=== PATIENT | male | born 1950 | race Caucasian/White ===

== ENCOUNTER → 2017-12-18 | Outpatient (CLI) | payer MEDICARE, OTHER ==
[2017-12-18 11:44] LABS: Blood Urea Nitrogen 30 mg/dL (9-20)
--- NOTE | 2017-12-18 14:38 | CT ---
EXAMINATION TYPE: CT pelvis w con DATE OF EXAM: 12/18/2017 COMPARISON: NONE HISTORY: Patient has prostate CA. CT DLP: 915.5 mGycm Automated exposure control for dose reduction was used. CONTRAST: Standard CT scanning of the pelvis per department protocol was performed with IV Contrast, patient in jected with 100 mL of Isovue 300. FINDINGS: The right seminal vesicle is slightly asymmetrically enlarged in comparison to the left. No focal are a of enhancement is seen within the prostate gland to correspond to the patient's known prostate carc inoma. Single central zone calcification is noted. No surrounding adenopathy is identified within the pelvis. Internal and external iliac chains are unremarkable. The visualized portion of the liver enhances homogeneously. Gallbladder is unremarkable with no gavin lithiasis. Abdominal aorta is of normal course and caliber with moderate calcific atheromatous change s. Sigmoid colon and descending colon containing numerous diverticula without pericolic fat strain. A ppendix is air-filled and within normal limits. Urinary bladder is slightly lobulated in contour with a small focal anterior right lateral diverticulum. Bilateral fat filled inguinal hernias are seen, l eft greater than right. No superficial inguinal adenopathy. Small bowel is nonenlarged. Visualized pa ncreatic head is grossly unremarkable. The kidneys contain multiple hypoechoic cortical lesions the l argest of which on the left measures up to 1.5 cm and is compatible with a simple cyst. The smaller o f these lesions are too small to accurately characterize. Punctate 3 mm cortical focus is seen within the right proximal femur on image 67. Extensive degenerat karson changes are present at L4-L5 with osseous sclerosis of the L4 and L5 vertebral bodies likely attr ibutable to be extensive degenerative change. IMPRESSION: 1. NO ADENOPATHY WITHIN THE PELVIS OR VISUALIZED ABDOMEN AND THIS PATIENT WITH KNOWN PROSTATE CARCINO MA AND A SLIGHTLY HETEROGENOUS PROSTATE GLAND. THE RIGHT SEMINAL VESICLE IS MINIMALLY LARGER AND SLIG HTLY ASYMMETRIC TO THE LEFT, WHICH COULD BE A NORMAL VARIANT. 2. SOLITARY PUNCTATE 3 MM FOCUS WITHIN THE RIGHT PROXIMAL FEMUR MOST LIKELY RELATES TO A BENIGN BONE ISLAND RATHER THAN METASTASIS. 3. EXTENSIVE DEGENERATIVE CHANGES AT THE L4-L5 LEVEL.
--- NOTE | 2017-12-18 15:52 | NM ---
EXAMINATION TYPE: NM bone scan whole body DATE OF EXAM: 12/18/2017 COMPARISON: NONE HISTORY: Prostate carcinoma Delayed whole-body scanning was performed following the injection of 23.3 mCi Tc 99m MDP. Images acq uired 3 hours post injection. FINDINGS: No intense uptake to suggest metastatic disease to the bone. Degenerative uptake seen about the shoul ders, sternoclavicular joints, lumbar spine, cervicothoracic junction, wrists, hands and ankles. IMPRESSION: No scintigraphic evidence to suggest metastatic disease at this time.
== END ==
LOC: RADNMMAIN 08:44
PROVIDERS: ATTEND Urology
DX: C61 Malignant neoplasm of prostate (principal); N50.89 Other specified disorders of the male genital organs
CPT/HCPCS: 82565; 84520; 72193; 78306; 36415; A9503; Q9967

== ENCOUNTER 2021-09-06 18:08 | Emergency (ER) | payer MEDICARE ==
[2021-09-06 18:27] VITALS: TEMP 98.1
[2021-09-06 19:30] LABS: Basophils % (A) 0 %; Eosinophils # (A) 0.1 k/uL (0-0.7); Eosinophils % (A) 1 %; HCT 43.5 % (39.0-53.0); HGB 14.4 gm/dL (13.0-17.5); Lymphocytes # (A) 2.6 k/uL (1.0-4.8); Lymphocytes % (A) 27 %; Mean Platelet Volume 8.2; Monocytes # (A) 0.8 k/uL (0-1.0); Monocytes % (A) 8 %; Neutrophils # (A) 5.9 k/uL (1.3-7.7); Neutrophils % (A) 62 %; Platelet Count 297 k/uL (150-450); RBC 4.49 m/uL (4.30-5.90); RDW 12.6 % (11.5-15.5); WBC 9.6 k/uL (3.8-10.6)
[2021-09-06 19:37] LABS: Albumin 3.9 g/dL (3.5-5.0); Calcium 9.5 mg/dL (8.4-10.2); Potassium 4.6 mmol/L (3.5-5.1); Total Bilirubin 0.4 mg/dL (0.2-1.3); Total Protein 6.9 g/dL (6.3-8.2)
[2021-09-06 19:39] LABS: INR 0.9 (<1.2); Partial Thromboplastin Time 22.1 sec (22.0-30.0); Prothrombin Time 10.2 sec (9.0-12.0)
[2021-09-06] MEDS ORDERED: SODIUM CHLORIDE 0.9% 500 ML 500 ML IV ONE (21:22)
--- NOTE | 2021-09-06 21:29 | ED ---
General Adult HPI - General Chief complaint: Neuro Symptoms/Deficit Stated complaint: pass stroke/sent by PCP Time Seen by Provider: 09/06/21 20:15 Source: patient, family, RN notes reviewed, old records reviewed Mode of arrival: ambulatory Limitations: no limitations - History of Present Illness Initial comments: 71-year-old male, well-appearing alert and oriented 4, presents to the emergency room with his family members. His and family member state that at times he seems confused and sometimes he is just staring off. The states that sometimes he states that he feels like his blood glucose level is low and it does not. They're concerned that he is having bouts of confusion. states that most of these episodes happen at night. They did call the primary care doctor's office and they have an appointment tomorrow however the laura raymundo at the desk told him to come to the emergency room for evaluation. Patient denies any chest pain shortness of breath difficulty breathing any fevers no nausea vomiting or diarrhea. He states he feels fine. Family is concerned that he is having these bouts of confusion over the past 2 weeks intermittently. -: week(s) (2) Severity scale (1-10): 0 Associated Symptoms: denies other symptoms Treatments Prior to Arrival: none - Related Data Home Medications Medication Instructions Recorded Confirmed Cholecalciferol [Vitamin D3 (25 25 mcg PO DAILY 09/06/21 09/06/21 Mcg = 1000 Iu)] Fluticasone Propion/Salmeterol 1 puff INHALATION RT-BID 09/06/21 09/06/21 [Fluticasone-Salmeterol 250-50] Insulin Aspart [NovoLOG] See Protocol SQ AC-TID 09/06/21 09/06/21 Insulin Glargine [Lantus Vial] 40 unit SQ DAILY 09/06/21 09/06/21 Lidocaine 5% Patch [Lidoderm] 1 patch TOPICAL DAILY PRN 09/06/21 09/06/21 Meloxicam 15 mg PO DAILY 09/06/21 09/06/21 Metoprolol Tartrate [Lopressor] 50 mg PO BID 09/06/21 09/06/21 Omeprazole 40 mg PO DAILY 09/06/21 09/06/21 Pravastatin Sodium [Pravachol] 20 mg PO DAILY 09/06/21 09/06/21 Vit C/E/Zn/Coppr/Lutein/Zeaxan 1 cap PO DAILY 09/06/21 09/06/21 [Preservision Areds 2 Softgel] glipiZIDE [Glucotrol] 10 mg PO AC-BID 09/06/21 09/06/21 lisinopriL [Zestril] 20 mg PO DAILY 09/06/21 09/06/21 metFORMIN HCL [Glucophage] 500 mg PO BID 09/06/21 09/06/21 traMADol HCL 50 mg PO BID PRN 09/06/21 09/06/21 Allergies Allergy/AdvReac Type Severity Reaction Status Date / Time No Known Allergies Allergy Verified 09/06/21 22:10 Review of Systems ROS Statement: Those systems with pertinent positive or pertinent negative responses have been documented in the HPI. ROS Other: All systems not noted in ROS Statement are negative. Past Medical History Past Medical History: Cancer, Diabetes Mellitus, Hyperlipidemia, Hypertension, Pulmonary Embolus (PE) Additional Past Medical History / Comment(s): prostate cancer History of Any Multi-Drug Resistant Organisms: None Reported Past Surgical History: Orthopedic Surgery, Prostate Surgery Past Psychological History: No Psychological Hx Reported Smoking Status: Former smoker Past Alcohol Use History: None Reported Past Drug Use History: None Reported General Exam Limitations: no limitations General appearance: alert, in no apparent distress Head exam: Present: atraumatic, normocephalic, normal inspection Eye exam: Present: normal appearance, PERRL, EOMI. Absent: scleral icterus, conjunctival injection, nystagmus, periorbital swelling, periorbital tenderness Pupils: Present: normal accommodation ENT exam: Present: normal exam, normal oropharynx, mucous membranes moist Neck exam: Present: normal inspection, full ROM. Absent: tenderness, men ingismus, lymphadenopathy, thyromegaly Respiratory exam: Present: normal lung sounds bilaterally. Absent: respiratory distress, wheezes, rales, rhonchi, stridor, chest wall tenderness, accessory muscle use, decreased breath sounds, prolonged expiratory Cardiovascular Exam: Present: regular rate, normal rhythm, normal heart sounds. Absent: systolic murmur, diastolic murmur, rubs, gallop, clicks, JVD GI/Abdominal exam: Present: soft, normal bowel sounds. Absent: distended, tenderness, guarding, rebound, rigid Extremities exam: Present: normal inspection, full ROM, normal capillary refill. Absent: tenderness, pedal edema, joint swelling, calf tenderness Back exam: Present: normal inspection. Absent: tenderness, CVA tenderness (R), CVA tenderness (L), paraspinal tenderness, vertebral tenderness, rash noted Expanded Back exam: Negative Straight Leg Raising: Left, Right Neurological exam: Present: alert, oriented X3, CN II-XII intact Expanded Patient oriented to: Present: person, place, time Speech: Present: fluid speech Cranial nerves: EOM's Intact: Normal, Tongue Deviation: Normal Cerebellar function: Finger to Nose: Normal, Heel to Fong: Normal Motor strength exam: RUE: 5, LUE: 5, RLE: 5, LLE: 5 Eye Response: (4) open spontaneously Motor Response: (6) obeys commands Verbal Response: (5) oriented [place] Total: 15 Psychiatric exam: Present: normal affect, normal mood Skin exam: Present: warm, dry, intact, normal color. Absent: rash, cyanosis, diaphoretic, erythema, petechiae, pallor, mottled Course Vital Signs 09/06/21 18:23 Temperature 98.1 F Pulse Rate 84 Respiratory 16 Rate Blood Pressure 120/70 O2 Sat by Pulse 95 Oximetry EKG Findings - EKG Results: EKG: sinus rhythm (Ventricular rate of 77, PA interval 0.144, QRS 0.88, QTc 0.414) Medical Decision Making - Medical Decision Making 71-year-old well-appearing male, alert and oriented 4, presents to the emergency room with his family members who state he seems confused and sometimes he is just staring off. They have noticed several episodes intermittently over the past 2 weeks. They have an appointment tomorrow the primary care provider. Patient denies any chest pains, headaches, dizziness, shortness of breath, fevers, nausea vomiting or diarrhea. He states he feels fine. He has no focal neurological deficits. Chest x-ray shows no acute cardiopulmonary disease or process. There is no evidence of leukocytosis. Hemoglobin and hematocrit are stable. Electrolytes are unremarkable. Glucose is 103. Troponin is negative at 0.012, EKG shows normal sinus rhythm with no ectopy. Urinalysis negative for signs of infection, ketones or blood. Urine drug screen is negative. Family persistent that patient have a CAT scan. Case was discussed with Dr. Ocampo, CAT scan ordered and shows cerebral artery was small vessel ischemia. No mass or midline shift. There is a 1.5 cm area of cortical hypodensity suggestive of a small old infarct. Patient and family directed to keep their appointment with the primary care doctor tomorrow. Return to emergency room if any new or concerning symptoms. - Lab Data Result diagrams: 09/06/21 19:06 09/06/21 19:06 Lab Results 09/06/21 09/06/21 09/06/21 Range/Units 19:06 19:06 19:06 WBC 9.6 (3.8-10.6) k/uL RBC 4.49 (4.30-5.90) m/uL Hgb 14.4 (13.0-17.5) gm/dL Hct 43.5 (39.0-53.0) % MCV 97.0 (80.0-100.0) fL MCH 32.0 (25.0-35.0) pg MCHC 33.0 (31.0-37.0) g/dL RDW 12.6 (11.5-15.5) % Plt Count 297 (150-450) k/uL MPV 8.2 Neutrophils % 62 % Lymphocytes % 27 % Monocytes % 8 % Eosinophils % 1 % Basophils % 0 % Neutrophils # 5.9 (1.3-7.7) k/uL Lymphocytes # 2.6 (1.0-4.8) k/uL Monocytes # 0.8 (0-1.0) k/uL Eosinophils # 0.1 (0-0.7) k/uL Basophils # 0.0 (0-0.2) k/uL PT 10.2 (9.0-12.0) sec INR 0.9 (<1.2) APTT 22.1 (22.0-30.0) sec Sodium 139 (137-145) mmol/L Potassium 4.6 (3.5-5.1) mmol/L Chloride 104 (98-107) mmol/L Carbon Dioxide 26 (22-30) mmol/L Anion Gap 9 mmol/L BUN 43 H (9-20) mg/dL Creatinine 1.33 H (0.66-1.25) mg/dL Est GFR (CKD-EPI)AfAm 61 (>60 ml/min/1.73 sqM) Est GFR (CKD-EPI)NonAf 53 (>60 ml/min/1.73 sqM) Glucose 103 H (74-99) mg/dL Calcium 9.5 (8.4-10.2) mg/dL Total Bilirubin 0.4 (0.2-1.3) mg/dL AST 26 (17-59) U/L ALT 16 (4-49) U/L Alkaline Phosphatase 55 (38-126) U/L Troponin I (0.000-0.034) ng/mL Total Protein 6.9 (6.3-8.2) g/dL Albumin 3.9 (3.5-5.0) g/dL Urine Color Urine Appearance (Clear) Urine pH (5.0-8.0) Ur Specific [place] (1.001-1.035) Urine Protein (Negative) Urine Glucose (UA) (Negative) Urine Ketones (Negative) Urine Blood (Negative) Urine Nitrite (Negative) Urine Bilirubin (Negative) Urine Urobilinogen (<2.0) mg/dL Ur Leukocyte Esterase (Negative) Urine Opiates Screen (NotDetected) Ur Oxycodone Screen (NotDetected) Urine Methadone Screen (NotDetected) Ur Propoxyphene Screen (NotDetected) Ur Barbiturates Screen (NotDetected) U Tricyclic Antidepress (NotDetected) Ur Phencyclidine Scrn (NotDetected) Ur Amphetamines Screen (NotDetected) U Methamphetamines Scrn (NotDetected) U Benzodiazepines Scrn (NotDetected) Urine Cocaine Screen (NotDetected) U Marijuana (THC) Screen (NotDetected) 09/06/21 09/06/21 09/06/21 Range/Units 19:06 22:11 22:11 WBC (3.8-10.6) k/uL RBC (4.30-5.90) m/uL Hgb (13.0-17.5) gm/dL Hct (39.0-53.0) % MCV (80.0-100.0) fL MCH (25.0-35.0) pg MCHC (31.0-37.0) g/dL RDW (11.5-15.5) % Plt Count (150-450) k/uL MPV Neutrophils % % Lymphocytes % % Monocytes % % Eosinophils % % Basophils % % Neutrophils # (1.3-7.7) k/uL Lymphocytes # (1.0-4.8) k/uL Monocytes # (0-1.0) k/uL Eosinophils # (0-0.7) k/uL Basophils # (0-0.2) k/uL PT (9.0-12.0) sec INR (<1.2) APTT (22.0-30.0) sec Sodium (137-145) mmol/L Potassium (3.5-5.1) mmol/L Chloride (98-107) mmol/L Carbon Dioxide (22-30) mmol/L Anion Gap mmol/L BUN (9-20) mg/dL Creatinine (0.66-1.25) mg/dL Est GFR (CKD-EPI)AfAm (>60 ml/min/1.73 sqM) Est GFR (CKD-EPI)NonAf (>60 ml/min/1.73 sqM) Glucose (74-99) mg/dL Calcium (8.4-10.2) mg/dL Total Bilirubin (0.2-1.3) mg/dL AST (17-59) U/L ALT (4-49) U/L Alkaline Phosphatase (38-126) U/L Troponin I <0.012 (0.000-0.034) ng/mL Total Protein (6.3-8.2) g/dL Albumin (3.5-5.0) g/dL Urine Color Yellow Urine Appearance Clear (Clear) Urine pH 5.0 (5.0-8.0) Ur Specific [place] 1.024 (1.001-1.035) Urine Protein Negative (Negative) Urine Glucose (UA) Negative (Negative) Urine Ketones Negative (Negative) Urine Blood Negative (Negative) Urine Nitrite Negative (Negative) Urine Bilirubin Negative (Negative) Urine Urobilinogen <2.0 (<2.0) mg/dL Ur Leukocyte Esterase Negative (Negative) Urine Opiates Screen Not Detected (NotDetected) Ur Oxycodone Screen Not Detected (NotDetected) Urine Methadone Screen Not Detected (NotDetected) Ur Propoxyphene Screen Not Detected (NotDetected) Ur Barbiturates Screen Not Detected (NotDetected) U Tricyclic Antidepress Not Detected (NotDetected) Ur Phencyclidine Scrn Not Detected (NotDetected) Ur Amphetamines Screen Not Detected (NotDetected) U Methamphetamines Scrn Not Detected (NotDetected) U Benzodiazepines Scrn Not Detected (NotDetected) Urine Cocaine Screen Not Detected (NotDetected) U Marijuana (THC) Screen Not Detected (NotDetected) Disposition Clinical Impression: Well adult exam Disposition: HOME SELF-CARE Condition: Good Additional Instructions: Keep your appointment with the primary care doctor as scheduled for tomorrow. Return to the emergency room with any new or concerning symptoms. Is patient prescribed a controlled substance at d/c from ED?: No Referrals: Lars Jain DO [Primary Care Provider] - 1-2 days Time of Disposition: 23:07
--- NOTE | 2021-09-06 21:55 | XR ---
INDICATION: Patient age:Male; 71 years old; Reason for study: altered mental status; PHH. COMPARISON: Multiple radiographs, with the most recent on 02/17/2018. TECHNIQUE: Frontal and lateral views of the chest. FINDINGS: Lungs/Pleura: Low lung volumes are present. There is no evidence of pleural effusion, focal consolida tion, or pneumothorax. Pulmonary vascularity: Unremarkable. Heart/mediastinum: Cardiomediastinal silhouette is unremarkable. Musculoskeletal: No acute osseous pathology. IMPRESSION: No acute cardiopulmonary disease/process.
[2021-09-06 22:19] LABS: Appearance,Urine Clear (Clear); Bilirubin,Urine Negative (Negative); Blood,Urine Negative (Negative); Color,Urine Yellow; Glucose,Urine (UA) Negative (Negative); Ketones,Urine Negative (Negative); Leukocyte Esterase,Urine Negative (Negative); Nitrite,Urine Negative (Negative); Protein,Urine Negative (Negative); Specific Gravity,Urine 1.024 (1.001-1.035); Urobilinogen,Urine <2.0 mg/dL (<2.0)
[2021-09-06 22:32] LABS: Amphetamine Screen,Urine Not Detected (NotDetected); Barbiturate Screen,Urine Not Detected (NotDetected); Benzodiazepines Screen,Urine Not Detected (NotDetected); Cocaine Screen,Urine Not Detected (NotDetected); Methadone Screen, Urine Not Detected (NotDetected); Opiate Screen,Urine Not Detected (NotDetected); Oxycodone Screen, Urine Not Detected (NotDetected); Phencyclidine Screen,Urine Not Detected (NotDetected); Tricyclic Antidepressant,Urine Not Detected (NotDetected); Urn Cannabinoid Scrn Not Detected (NotDetected)
--- NOTE | 2021-09-06 23:02 | CT ---
EXAMINATION TYPE: CT brain wo con DATE OF EXAM: 09/06/2021 COMPARISON: None HISTORY: Confusion CT DLP: 1098.4 mGycm Automated exposure control for dose reduction was used. There is cerebral cortical atrophy. There is patchy hypodensity in the periventricular white matter. There is no mass effect nor midline shift. There is 1.5 cm area of cortical hypodensity right posteri or frontal lobe suggestive of small old infarct. Calvarium is intact. Skull base is intact. IMPRESSION: Cerebral atrophy. Chronic small vessel ischemia. This probably old right posterior frontal cortical i nfarct.
[2021-09-06 23:32] VITALS: BP 142/76; PULSE 98; RESP 20
== END 2021-09-06 23:32 | disposition home or self-care (01) ==
LOC: EC 18:08
DX: Z00.00 Encounter for general adult medical examination without abnormal findings (principal); E11.9 Type 2 diabetes mellitus without complications; I10 Essential (primary) hypertension; E78.5 Hyperlipidemia, unspecified; Z86.711 Personal history of pulmonary embolism; Z87.891 Personal history of nicotine dependence; Z79.84 Long term (current) use of oral hypoglycemic drugs; Z79.4 Long term (current) use of insulin; Z79.1 Long term (current) use of non-steroidal anti-inflammatories (NSAID); Z79.899 Other long term (current) drug therapy
CPT/HCPCS: 36415; 70450; 71046; 80053; 80306; 81003; 84484; 85025; 85610; 85730; 93005; 99285

== ENCOUNTER → 2021-09-07 | Outpatient (CLI) | payer MEDICARE ==
[2021-09-07 22:38] LABS: C Reactive Protein <0.30 mg/dL (0.00-0.80); Prostate Specific Antigen <0.01 ng/mL (0.00-6.50)
== END | disposition home or self-care (01) ==
LOC: LABWHC1 12:17
PROVIDERS: ATTEND Family Medicine
DX: E11.9 Type 2 diabetes mellitus without complications (principal); E53.8 Deficiency of other specified B group vitamins; R41.0 Disorientation, unspecified
CPT/HCPCS: 36415; 84153; 85379; 85652; 86140; 86780

== ENCOUNTER 2024-05-29 10:23 | Emergency (ER) | payer MEDICARE, OTHER ==
[2024-05-29 10:30] VITALS: RESP 18
[2024-05-29 11:45] LABS: Appearance,Urine Clear (Clear); Bilirubin,Urine Negative (Negative); Blood,Urine Negative (Negative); Color,Urine Yellow; Glucose,Urine (UA) 3+ (Negative); Ketones,Urine Negative (Negative); Leukocyte Esterase,Urine Negative (Negative); Nitrite,Urine Negative (Negative); Protein,Urine Negative (Negative); Specific Gravity,Urine 1.018 (1.001-1.035); Urobilinogen,Urine <2.0 mg/dL (<2.0)
[2024-05-29 11:45] LABS: Glucose,Whole Blood 278 mg/dL (70-110)
[2024-05-29 12:00] VITALS: TEMP 98.4
[2024-05-29 12:19] LABS: Basophils % (A) 0 %; Eosinophils # (A) 0.1 k/uL (0-0.7); Eosinophils % (A) 1 %; HCT 39.1 % (39.0-53.0); HGB 13.1 gm/dL (13.0-17.5); Lymphocytes # (A) 2.1 k/uL (1.0-4.8); Lymphocytes % (A) 21 %; MCH 32.4 pg (25.0-35.0); MCHC 33.5 g/dL (31.0-37.0); MCV 96.5 fL (80.0-100.0); Mean Platelet Volume 8.7; Monocytes # (A) 0.6 k/uL (0-1.0); Monocytes % (A) 6 %; Neutrophils # (A) 6.7 k/uL (1.3-7.7); Neutrophils % (A) 70 %; Platelet Count 253 k/uL (150-450); RBC 4.05 m/uL (4.30-5.90); RDW 12.1 % (11.5-15.5); WBC 9.6 k/uL (3.8-10.6)
[2024-05-29 12:30] LABS: Prothrombin Time 10.9 sec (10.0-12.5)
[2024-05-29 12:33] LABS: ALT 14 U/L (4-49); AST 22 U/L (17-59); African American GFR (CKD) 66 (>60 ml/min/1.73 sqM); Albumin 3.9 g/dL (3.5-5.0); Alkaline Phosphatase 60 U/L (38-126); Anion Gap 8 mmol/L; Blood Urea Nitrogen 34 mg/dL (9-20); Calcium 9.1 mg/dL (8.4-10.2); Carbon Dioxide 24 mmol/L (22-30); Chloride 100 mmol/L (98-107); Glucose 258 mg/dL (74-99); Non-African American GFR(CKD) 58 (>60 ml/min/1.73 sqM); Potassium 4.9 mmol/L (3.5-5.1); Sodium 132 mmol/L (137-145); Total Bilirubin 0.7 mg/dL (0.2-1.3); Total Protein 6.7 g/dL (6.3-8.2)
--- NOTE | 2024-05-29 13:08 | CT ---
EXAMINATION TYPE: CT brain wo con DATE OF EXAM: 05/29/2024 COMPARISON: 09/06/2021 INDICATION: AMS DLP: 1095.4 mGycm, Automated exposure control for dose reduction was used. CONTRAST: None CT of the brain is performed utilizing 3 mm thick sections through the posterior fossa and 3 mm thick sections through the remaining calvarium. Study is performed within 24 hours of arrival to the hosp ital. No abnormal hyperdensity is present to suggest an acute intracranial hemorrhage. No mass lesion is evident. No acute infarcts are evident. Patchy periventricular white matter chronic appearing ischemic type ch anges are present. Findings appear stable. There is an old lacunar infarct within the left cerebellum present previously Ventricles and sulci are prominent for the patient age. Paranasal sinuses and mastoid air cells within the [id number] are clear. IMPRESSION: 1. No acute intracranial process. Follow up MRI can be performed as clinically indicated. 2. Atrophy with chronic appearing patchy periventricular white matter ischemic changes, stable from 2 021 3. 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
--- NOTE | 2024-05-29 13:14 | CT ---
CTA CHEST EXAMINATION TYPE: CT chest angio for PE DATE OF EXAM: 05/29/2024 INDICATION: PE CT DLP: 393.7 mGycm, Automated exposure control for dose reduction was used. CONTRAST: Patient injected with 100 ml mL of Isovue 370. COMPARISON: TECHNIQUE: CT of the chest is performed on a spiral scan at 2 mm thick sections. Study is performed with intravenous contrast timed for evaluation for pulmonary embolism. This will limit additional po rtions of the evaluation. 3-D MIP images reconstructed by the technologist are reviewed on the compu ter in the coronal and sagittal planes. FINDINGS: No persistent filling defects are evident to suggest an acute pulmonary embolism. No mediastinal or hilar adenopathy enlarged by CT criteria is evident. The ascending aorta diameter at the level of the main pulmonary artery is 3.6 cm. The main pulmonary artery diameter at the bifurcation is 3.1 cm. Lung windows are clear. Emphysematous changes are present. Limited CT sections were through the upper abdomen. Upper abdomen appears unremarkable. IMPRESSION: 1. No acute pulmonary embolism. 2. No acute pulmonary process. 3. COPD
[2024-05-29] MEDS: SODIUM CHLORIDE 0.9% 1,000 ML IV ONE (13:30)
--- NOTE | 2024-05-29 14:23 | ED ---
Altered Mental Status HPI - General Chief Complaint: Altered Mental Status Stated Complaint: low O2 Time Seen by Provider: 05/29/24 10:34 Source: patient, family Mode of arrival: ambulatory Limitations: no limitations - History of Present Illness Initial Comments: 74-year-old male presents emergency department accompanied by his and daughter. They state that over the past couple of days the patient has had episodes of confusion. He seems to be better at this time however they wanted him to be checked out as he is supposed to be going to [place] in a couple of days. They deny that he has a any history of dementia. No urinary complaints. No fevers. No head trauma. They went to an urgent care who directed them to come to the hospital. They found that the patient was hypoxic at the urgent care. He was 88% on room air. Patient denies any history of respiratory issues such as asthma or COPD. He used to be a smoker. No COVID symptoms. No fevers or sick contacts. He denies any chest pain. No history of cardiac disease. No other alleviating, precipitating or modifying factors - Related Data Home Medications Medication Instructions Recorded Confirmed Cholecalciferol [Vitamin D3 (25 25 mcg PO DAILY 09/06/21 09/06/21 Mcg = 1000 Iu)] Fluticasone Propion/Salmeterol 1 puff INHALATION RT-BID 09/06/21 09/06/21 [Fluticasone-Salmeterol 250-50] Insulin Aspart [NovoLOG] See Protocol SQ AC-TID 09/06/21 09/06/21 Insulin Glargine [Lantus Vial] 40 unit SQ DAILY 09/06/21 09/06/21 Lidocaine 5% Patch [Lidoderm] 1 patch TOPICAL DAILY PRN 09/06/21 09/06/21 Meloxicam 15 mg PO DAILY 09/06/21 09/06/21 Metoprolol Tartrate [Lopressor] 50 mg PO BID 09/06/21 09/06/21 Omeprazole 40 mg PO DAILY 09/06/21 09/06/21 Pravastatin Sodium [Pravachol] 20 mg PO DAILY 09/06/21 09/06/21 Vit C/E/Zn/Coppr/Lutein/Zeaxan 1 cap PO DAILY 09/06/21 09/06/21 [Preservision Areds 2 Softgel] glipiZIDE [Glucotrol] 10 mg PO AC-BID 09/06/21 09/06/21 lisinopriL [Zestril] 20 mg PO DAILY 09/06/21 09/06/21 metFORMIN HCL [Glucophage] 500 mg PO BID 09/06/21 09/06/21 traMADol HCL 50 mg PO BID PRN 09/06/21 09/06/21 Allergies Allergy/AdvReac Type Severity Reaction Status Date / Time No Known Allergies Allergy Verified 05/29/24 10:30 Review of Systems ROS Statement: Those systems with pertinent positive or pertinent negative responses have been documented in the HPI. ROS Other: All systems not noted in ROS Statement are negative. Past Medical History Past Medical History: Cancer, Diabetes Mellitus, Hyperlipidemia, Hypertension, Pulmonary Embolus (PE) Additional Past Medical History / Comment(s): prostate cancer History of Any Multi-Drug Resistant Organisms: None Reported Past Surgical History: Orthopedic Surgery, Prostate Surgery Past Psychological History: No Psychological Hx Reported Smoking Status: Former smoker Past Alcohol Use History: None Reported Past Drug Use History: None Reported General Exam Limitations: no limitations General appearance: alert, in no apparent distress Head exam: Present: atraumatic, normocephalic, normal inspection Eye exam: Present: normal appearance, PERRL, EOMI. Absent: scleral icterus, conjunctival injection, periorbital swelling ENT exam: Present: normal exam, mucous membranes moist Neck exam: Present: normal inspection. Absent: tenderness, meningismus, lymphadenopathy Respiratory exam: Present: normal lung sounds bilaterally. Absent: respiratory distress, wheezes, rales, rhonchi, stridor Cardiovascular Exam: Present: regular rate, normal rhythm, normal heart sounds. Absent: systolic murmur, diastolic murmur, rubs, gallop, clicks GI/Abdominal exam: Present: soft, normal bowel sounds. Absent: distended, tenderness, guarding, rebound, rigid Extremities exam: Present: normal inspection, full ROM, normal capillary refill. Absent: tenderness, pedal edema, joint swelling, calf tenderness Back exam: Present: normal inspection Neurological exam: Present: alert, oriented X3, CN II-XII intact Psychiatric exam: Present: normal affect, normal mood Skin exam: Present: warm, dry, intact, normal color. Absent: rash Course Vital Signs 05/29/24 05/29/24 05/29/24 10:26 10:45 10:57 Temperature 98 F 98.7 F Pulse Rate 75 70 Respiratory 18 18 Rate Blood Pressure 162/75 143/82 O2 Sat by Pulse 99 89 L 95 Oximetry 05/29/24 05/29/24 12:00 14:24 Temperature 98.4 F Pulse Rate 73 70 Respiratory 18 18 Rate Blood Pressure 134/78 157/70 O2 Sat by Pulse 94 L 95 Oximetry Medical Decision Making - Medical Decision Making Was pt. sent in by a medical professional or institution (, PA, FUEL SYSTEM MAINTENANCE SUPERVISOR, urgent care, hospital, or intermediate...) When possible be specific @ -Patient sent in from urgent care Did you speak to anyone other than the patient for history (EMS, parent, family, police, friend...)? What history was obtained from this source @ -Spoke with and daughter Did you review nursing and triage notes (agree or disagree)? Why? @ -I reviewed and agree with nursing and triage notes Were old charts reviewed (outside hosp., previous admission, EMS record, old EKG, old radiological studies, urgent care reports/EKG's, intermediate records)? Report findings @ -I did review previous brain CT which was done in 2020. Patient had identifiable lacunar infarct at that time. He was also seen in the emergency department for altered mental status which seems extremely consistent to what his symptoms are today Differential Diagnosis (chest pain, altered mental status, abdominal pain women, abdominal pain men, vaginal bleeding, weakness, fever, dyspnea, syncope, headache, dizziness, GI bleed, back pain, seizure, CVA, palpatations, mental health, musculoskeletal)? @ -Differential Altered Mental Status: Hypoglycemia, DKA, hypercapnia, ETOH, overdose, CO poisoning, trauma, myxedema coma, HTN encephalopathy, infection, encephalitis, psychosis, intercranial hemorrhage, hepatic encephalopathy, meningitis, CVA, this is not meant to be an all-inclusive list EKG interpreted by me (3pts min.). @ -yes and demonstrates sinus rhythm with a rate of 69. OR interval 164. QRS 86. QTc of 403. No acute ST segment elevations or depressions X-rays interpreted by me (1pt min.). @ -None done CT interpreted by me (1pt min.). @ -Yes and demonstrates chronic microvascular ischemic change, lacunar infarct. No PE U/S interpreted by me (1pt. min.). @ -None done What testing was considered but not performed or refused? (CT, X-rays, U/S, labs)? Why? @ -MRI was neurology consultation however patient will not be admitted What meds were considered but not given or refused? Why? @ -None Did you discuss the management of the patient with other professionals (professionals i.e. Dr., PA, FUEL SYSTEM MAINTENANCE SUPERVISOR, lab, RT, psych nurse, older adult social work specialist, filter tender jelly, teacher, asset protection officer, rn case manager hospice)? Give summary @ -No Was smoking cessation discussed for >3mins.? @ -No Was critical care preformed (if so, how long)? @ -No Were there social determinants of health that impacted care today? How? (Homelessness, low income, unemployed, alcoholism, drug addiction, transportation, low edu. Level, literacy, decrease access to med. care, alf, rehab)? @ -No Was there de-escalation of care discussed even if they declined (Discuss DNR or withdrawal of care, Hospice)? DNR status @ -No What co-morbidities impacted this encounter? (DM, HTN, Smoking, COPD, CAD, Cancer, CVA, ARF, Chemo, Hep., AIDS, mental health diagnosis, sleep apnea, morbid obesity)? @ -Diabetes Was patient admitted / discharged? Hospital course, mention meds given and route, prescriptions, significant lab abnormalities, going to OR and other pertinent info. @ -Upon arrival patient seen and evaluated in room 10. Thorough history and physical exam was performed. Patient is alert and oriented x 3 at this time. He is agreeable to workup. Laboratory studies are conducted. CT of the brain was performed. He does have an identifiable area of old lacunar infarct. This was seen previously on old CAT scans. I did discuss the diagnosis and differential with family. I did recommend admission for neurology consultation and MRI. Patient was adamant that he wanted to go home. states that he is back to his normal self and therefore she does not feel that he needs to stay. As they are refusing admission I did recommend they follow-up with her primary care doctor to get an MRI and an echo. The patient asked to return should he have any new or worsening symptoms. and patient were agreeable and the patient was discharged in stable condition Undiagnosed new problem with uncertain prognosis? @ -No Drug Therapy requiring intensive monitoring for toxicity (Heparin, Nitro, Insulin, Cardizem)? @ -No Were any procedures done? @ -No Diagnosis/symptom? @ -Acute transient encephalopathy, acute hypoxia, evaluation for PE, history of PE, acute hyponatremia, hyperglycemia in diabetic patient Acute, or Chronic, or Acute on Chronic? @ -Acute Uncomplicated (without systemic symptoms) or Complicated (systemic symptoms)? @ -Complicated Side effects of treatment? @ -No Exacerbation, Progression, or Severe Exacerbation? @ -No Poses a threat to life or bodily function? How? (Chest pain, [place], [place], pneumonia, PE, COPD, DKA, ARF, appy, cholecystitis, CVA, Diverticulitis, Homicidal, Suicidal, threat to staff... and all critical care pts) @ -No - Lab Data Result diagrams: 05/29/24 11:57 05/29/24 11:57 Lab Results 05/29/24 05/29/24 05/29/24 Range/Units 11:31 11:31 11:43 WBC (3.8-10.6) k/uL RBC (4.30-5.90) m/uL Hgb (13.0-17.5) gm/dL Hct (39.0-53.0) % MCV (80.0-100.0) fL MCH (25.0-35.0) pg MCHC (31.0-37.0) g/dL RDW (11.5-15.5) % Plt Count (150-450) k/uL MPV Neutrophils % % Lymphocytes % % Monocytes % % Eosinophils % % Basophils % % Neutrophils # (1.3-7.7) k/uL Lymphocytes # (1.0-4.8) k/uL Monocytes # (0-1.0) k/uL Eosinophils # (0-0.7) k/uL Basophils # (0-0.2) k/uL PT (10.0-12.5) sec INR (<1.2) APTT (22.0-30.0) sec Sodium (137-145) mmol/L Potassium (3.5-5.1) mmol/L Chloride (98-107) mmol/L Carbon Dioxide (22-30) mmol/L Anion Gap mmol/L BUN (9-20) mg/dL Creatinine (0.66-1.25) mg/dL Est GFR (CKD-EPI)AfAm (>60 ml/min/1.73 sqM) Est GFR (CKD-EPI)NonAf (>60 ml/min/1.73 sqM) Glucose (74-99) mg/dL POC Glucose (mg/dL) 278 H (70-110) mg/dL POC Glu Maintenance Engineer ID Mariah Be Calcium (8.4-10.2) mg/dL Total Bilirubin (0.2-1.3) mg/dL AST (17-59) U/L ALT (4-49) U/L Alkaline Phosphatase (38-126) U/L Troponin I (0.000-0.034) ng/mL Total Protein (6.3-8.2) g/dL Albumin (3.5-5.0) g/dL Urine Color Yellow Urine Appearance Clear (Clear) Urine pH 5.0 (5.0-8.0) Ur Specific [place] 1.018 (1.001-1.035) Urine Protein Negative (Negative) Urine Glucose (UA) 3+ H (Negative) Urine Ketones Negative (Negative) Urine Blood Negative (Negative) Urine Nitrite Negative (Negative) Urine Bilirubin Negative (Negative) Urine Urobilinogen <2.0 (<2.0) mg/dL Ur Leukocyte Esterase Negative (Negative) Influenza Type A (PCR) Not Detected (Not Detectd) Influenza Type B (PCR) Not Detected (Not Detectd) RSV (PCR) Not Detected (Not Detectd) SARS-CoV-2 (PCR) Not Detected (Not Detectd) 05/29/24 05/29/24 05/29/24 Range/Units 11:57 11:57 11:57 WBC 9.6 (3.8-10.6) k/uL RBC 4.05 L (4.30-5.90) m/uL Hgb 13.1 (13.0-17.5) gm/dL Hct 39.1 (39.0-53.0) % MCV 96.5 (80.0-100.0) fL MCH 32.4 (25.0-35.0) pg MCHC 33.5 (31.0-37.0) g/dL RDW 12.1 (11.5-15.5) % Plt Count 253 (150-450) k/uL MPV 8.7 Neutrophils % 70 % Lymphocytes % 21 % Monocytes % 6 % Eosinophils % 1 % Basophils % 0 % Neutrophils # 6.7 (1.3-7.7) k/uL Lymphocytes # 2.1 (1.0-4.8) k/uL Monocytes # 0.6 (0-1.0) k/uL Eosinophils # 0.1 (0-0.7) k/uL Basophils # 0.0 (0-0.2) k/uL PT 10.9 (10.0-12.5) sec INR 1.0 (<1.2) APTT 23.0 (22.0-30.0) sec Sodium 132 L (137-145) mmol/L Potassium 4.9 (3.5-5.1) mmol/L Chloride 100 (98-107) mmol/L Carbon Dioxide 24 (22-30) mmol/L Anion Gap 8 mmol/L BUN 34 H (9-20) mg/dL Creatinine 1.22 (0.66-1.25) mg/dL Est GFR (CKD-EPI)AfAm 66 (>60 ml/min/1.73 sqM) Est GFR (CKD-EPI)NonAf 58 (>60 ml/min/1.73 sqM) Glucose 258 H (74-99) mg/dL POC Glucose (mg/dL) (70-110) mg/dL POC Glu Maintenance Engineer ID Calcium 9.1 (8.4-10.2) mg/dL Total Bilirubin 0.7 (0.2-1.3) mg/dL AST 22 (17-59) U/L ALT 14 (4-49) U/L Alkaline Phosphatase 60 (38-126) U/L Troponin I (0.000-0.034) ng/mL Total Protein 6.7 (6.3-8.2) g/dL Albumin 3.9 (3.5-5.0) g/dL Urine Color Urine Appearance (Clear) Urine pH (5.0-8.0) Ur Specific [place] (1.001-1.035) Urine Protein (Negative) Urine Glucose (UA) (Negative) Urine Ketones (Negative) Urine Blood (Negative) Urine Nitrite (Negative) Urine Bilirubin (Negative) Urine Urobilinogen (<2.0) mg/dL Ur Leukocyte Esterase (Negative) Influenza Type A (PCR) (Not Detectd) Influenza Type B (PCR) (Not Detectd) RSV (PCR) (Not Detectd) SARS-CoV-2 (PCR) (Not Detectd) 05/29/24 Range/Units 11:57 WBC (3.8-10.6) k/uL RBC (4.30-5.90) m/uL Hgb (13.0-17.5) gm/dL Hct (39.0-53.0) % MCV (80.0-100.0) fL MCH (25.0-35.0) pg MCHC (31.0-37.0) g/dL RDW (11.5-15.5) % Plt Count (150-450) k/uL MPV Neutrophils % % Lymphocytes % % Monocytes % % Eosinophils % % Basophils % % Neutrophils # (1.3-7.7) k/uL Lymphocytes # (1.0-4.8) k/uL Monocytes # (0-1.0) k/uL Eosinophils # (0-0.7) k/uL Basophils # (0-0.2) k/uL PT (10.0-12.5) sec INR (<1.2) APTT (22.0-30.0) sec Sodium (137-145) mmol/L Potassium (3.5-5.1) mmol/L Chloride (98-107) mmol/L Carbon Dioxide (22-30) mmol/L Anion Gap mmol/L BUN (9-20) mg/dL Creatinine (0.66-1.25) mg/dL Est GFR (CKD-EPI)AfAm (>60 ml/min/1.73 sqM) Est GFR (CKD-EPI)NonAf (>60 ml/min/1.73 sqM) Glucose (74-99) mg/dL POC Glucose (mg/dL) (70-110) mg/dL POC Glu Maintenance Engineer ID Calcium (8.4-10.2) mg/dL Total Bilirubin (0.2-1.3) mg/dL AST (17-59) U/L ALT (4-49) U/L Alkaline Phosphatase (38-126) U/L Troponin I <0.012 (0.000-0.034) ng/mL Total Protein (6.3-8.2) g/dL Albumin (3.5-5.0) g/dL Urine Color Urine Appearance (Clear) Urine pH (5.0-8.0) Ur Specific [place] (1.001-1.035) Urine Protein (Negative) Urine Glucose (UA) (Negative) Urine Ketones (Negative) Urine Blood (Negative) Urine Nitrite (Negative) Urine Bilirubin (Negative) Urine Urobilinogen (<2.0) mg/dL Ur Leukocyte Esterase (Negative) Influenza Type A (PCR) (Not Detectd) Influenza Type B (PCR) (Not Detectd) RSV (PCR) (Not Detectd) SARS-CoV-2 (PCR) (Not Detectd) Disposition Clinical Impression: Encephalopathy, Hyponatremia, Lacunar infarction Disposition: HOME SELF-CARE Condition: Stable Instructions (If sedation given, give patient instructions): Altered Mental Status (ED) Additional Instructions: Labs were remarkable for a slightly lowered sodium. This was replaced by IV fluids. Your CAT scan of your chest did not show a blood clot. Your CT of your brain did show an old stroke but this was also seen back in 2020. I do think you need further workup for your symptoms. This would include an MRI of your brain and an echo of your heart. Please talk to your primary care doctor about having these test performed as you did not want to stay the night in the hospital. If your symptoms worsen please return to the emergency department. Is patient prescribed a controlled substance at d/c from ED?: No Referrals: Lars Jain DO [Primary Care Provider] - 1-2 days Time of Disposition: 14:23
[2024-05-29 14:25] VITALS: BP 157/70; PULSE 70
== END 2024-05-29 14:31 | disposition home or self-care (01) ==
LOC: EC 10:23
DX: R06.02 Shortness of breath
CPT/HCPCS: 36415; 70450; 71275; 80053; 81003; 84484; 85025; 85610; 85730; 87636; 93005; 99285